=== PATIENT | female | born 1945 | race African-American/Black ===

== ENCOUNTER 2017-02-27 16:43 | Emergency (ER) | payer OTHER, MEDICARE ==
[~2017-02-27] VITALS: Ht 172.7 cm; Wt 78.0 kg
[~2017-02-27 16:43] MED LIST: AMLO-268 PO; ASPI-482 PO; LEVO112T4 PO; MECL12.52 PO
[2017-02-27 17:20] VITALS: BP 166/86
[2017-02-27] MEDS ORDERED: IBUP-1007 PO (17:31)
[2017-02-27] MEDS ORDERED: CYCL10TA2 PO (17:31)
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
== END 2017-02-27 17:46 | disposition home or self-care (01) ==
LOC: ER 16:43
DX: S70.12XA Contusion of left thigh, initial encounter (principal); S50.12XA Contusion of left forearm, initial encounter; I10 Essential (primary) hypertension; Z98.49 Cataract extraction status, unspecified eye; V43.52XA Car driver injured in collision with other type car in traffic accident, initial encounter; Y93.I9 Activity, other involving external motion; Y92.410 Unspecified street and highway as the place of occurrence of the external cause; Y99.8 Other external cause status
CPT/HCPCS: 99283

== ENCOUNTER 2019-02-27 18:11 | Emergency (ER) | payer MEDICARE ==
[~2019-02-27] VITALS: Ht 172.7 cm; Wt 77.1 kg
[~2019-02-27 18:11] MED LIST changes: +CYCL10TA2 PO; +IBUP-1007 PO
[2019-02-27 19:24] VITALS: BP 180/68
[2019-02-27] MEDS ORDERED: LIDOCAINE 2% VISCOUS 15 ML SOLUTION. SWSW STA (19:41)
--- NOTE | 2019-02-27 19:46 | PHYS DOC ---
Past Medical History Past Medical History: Hypertension, Hypothyroid (HERNANDEZ MONTES DE OCA APRN) Past Surgical History: Other Additional Past Surgical Histo: CATARACT, HERNIA (HERNANDEZ MONTES DE OCA APRN) Alcohol Use: None Drug Use: None (HERNANDEZ MONTES DE OCA APRN) Attending Signature I have participated in the care of this patient and I have reviewed and agree with all pertinent clinical information above including history, exam, and recommendations. (REBECCA AGUSTIN MD) Adult General Chief Complaint Chief Complaint: MECHANICAL FALL HPI HPI Patient is a 73 year old female who presents with a fall that happened around 6:15 this evening. The patient fell as she was walking up the front steps her house she tripped over a step fell face forward and hit her mouth against a step. Rates her pain as 5 out of 10 in severity. She states that she doesn't really hurting where she is is worried about lip laceration. (HERNANDEZ MONTES DE OCA APRN) Review of Systems Review of Systems Constitutional: Denies fever or chills [] Eyes: Denies change in visual acuity, redness, or eye pain [] HENT: Denies nasal congestion or sore throat [] Respiratory: Denies cough or shortness of breath [] Cardiovascular: No additional information not addressed in HPI [] GI: Denies abdominal pain, nausea, vomiting, bloody stools or diarrhea [] : Denies dysuria or hematuria [] Musculoskeletal: Denies back pain or joint pain [] Integument: Reports laceration inside mouth. Neurologic: Denies headache, focal weakness or sensory changes [] Endocrine: Denies polyuria or polydipsia [] Complete systems were reviewed and found to be within normal limits, except as documented in this note. (HERNANDEZ MONTES DE OCA APRN) Current Medications Current Medications Current Medications Medications (Trade) Dose Ordered Sig/Jennifer Start Time Stop Time Status Last Admin Dose Admin Diphtheria/ Tetanus/Acell Pertussis (Boostrix) 0.5 ml ONCE ONCE 02/27/19 21:15 02/27/19 21:16 DC 02/27/19 21:14 0.5 ML Lidocaine HCl (Viscous Lidocaine) 15 ml 1X STAT 02/27/19 19:41 02/27/19 19:46 DC 02/27/19 19:49 15 ML (REBECCA AGUSTIN MD) Allergies Allergies Allergies Coded Allergies Type Severity Reaction Last Updated Verified No Known Drug Allergies 12/05/14 No (REBECCA AGUSTIN MD) Physical Exam Physical Exam Constitutional: Well developed, well nourished, no acute distress, non-toxic appearance. [] HENT: Normocephalic, atraumatic, bilateral external ears normal, oropharynx moist, has 2 cm laceration inside mouth, no oral exudates, nose normal. [] Eyes: PERRLA, EOMI, conjunctiva normal, no discharge. [] Abdomen: Bowel sounds normal, soft, no tenderness, no masses, no pulsatile masses. [] Skin: Warm, dry, no erythema, no rash. [] Back: No tenderness, no CVA tenderness. [] Extremities: No tenderness, no cyanosis, no clubbing, ROM intact, no edema. [] Neurologic: Alert and oriented X 3, normal motor function, normal sensory function, no focal deficits noted. [] Psychologic: Affect normal, judgement normal, mood normal. [] (HERNANDEZ MONTES DE OCA APRN) Current Patient Data Vital Signs Vital Signs Date Time Temp Pulse Resp B/P (MAP) Pulse Ox O2 Delivery O2 Flow Rate FiO2 02/27/19 19:24 69 97 02/27/19 19:14 98.8 18 208/91 (130) Room Air 98.8 (REBECCA AGUSTIN MD) EKG EKG [] (HERNANDEZ MONTES DE OCA APRN) Radiology/Procedures Radiology/Procedures Indication: Mouth Laceration Procedure: The patient was placed in the appropriate position and anesthesia around the viscious lidocaine. The laceration was closed with chromic gut sutures (4). Total repaired wound length: 3 cm. Other Items: [OTHER ITEMS] The patient tolerated the procedure well. (HERNANDEZ MONTES DE OCA APRN) Course & Med Decision Making Course & Med Decision Making Pertinent Labs and Imaging studies reviewed. (See chart for details) Will order viscous lidocaine and then will suture laceration. Laceration was sutured. (HERNANDEZ MONTES DE OCA APRN) Dragon Disclaimer Dragon Disclaimer This electronic medical record was generated, in whole or in part, using a voice recognition dictation system. (HERNANDEZ MONTES DE OCA APRN) Departure Departure Impression: Primary Impression: Laceration of mouth, internal Disposition: 01 HOME, SELF-CARE Condition: STABLE Referrals: HERNANDEZ DOAN MD (PCP) Patient Instructions: Absorbable Suture Repair-Brief, Mouth Laceration Additional Instructions: Thank you for visiting [facility]. We appreciate you trusting us with your care. If any additional problems come up don't hesitate to return to visit us. Please follow up with your primary care provider so they can plan additional care if needed and know about the problem that you had. If symptoms worsen come back to the Emergency Department. Any concerning symptoms that start such as chest pain, shortness of air, weakness or numbness on one side of the body, running high fevers or any other concerning symptoms return to the ER. If you have any issues please return to ER. Problem Qualifiers Primary Impression: Laceration of mouth, internal Encounter type: initial encounter Qualified Codes: S01.512A - Laceration without foreign body of oral cavity, initial encounter HERNANDEZ MONTES DE OCA APRN Feb 27, 2019 19:46 REBECCA AGUSTIN MD Mar 09, 2019 18:17
[2019-02-27] MEDS ORDERED: DIPHTH,PERTUSS(ACELL),TET TOX 0.5 ML DISP.SYRIN. VAX IM ONE (21:15)
== END 2019-02-27 21:05 | disposition home or self-care (01) ==
LOC: ER 18:11
DX: S01.512A Laceration without foreign body of oral cavity, initial encounter (principal); I10 Essential (primary) hypertension; E03.9 Hypothyroidism, unspecified; W18.09XA Striking against other object with subsequent fall, initial encounter; Y93.01 Activity, walking, marching and hiking; Y92.89 Other specified places as the place of occurrence of the external cause; Y99.8 Other external cause status
CPT/HCPCS: 12011; 12013; 90471; 90715; 99283

== ENCOUNTER → 2021-04-26 | Outpatient (CLI) | payer MEDICARE ==
[~2021-04-26] MED LIST changes: +CYCL10TA19 PO; -CYCL10TA2 PO; -LEVO112T4 PO; +LEVO112T49 PO; -MECL12.52 PO; +MECL12.582 PO
--- NOTE | 2021-04-26 10:34 | RAD ---
PQRS Compliance Statement: One or more of the following individualized dose reduction techniques were utilized for this examinat ion: 1. Automated exposure control 2. Adjustment of the mA and/or kV according to patient size 3. Use of iterative reconstruction technique Exam performed: CT scan of the abdomen and pelvis without contrast. Clinical Indication: Reason: LLQ PAIN X 2 MONTHS- / Spl. Instructions: / History: Date of Service: 04/26/2021 9:18 AM. Comparison: None available Technique: Contiguous helical acquisitions are obtained through the abdomen and pelvis without IV con trast. Sagittal and coronal reformatted images are obtained and reviewed. CT abdomen and pelvis findings: The lung bases are essentially clear. Visualized heart is normal. Lack of IV contrast limits evaluation of abdominal viscera, however the liver, spleen and pancreas ar e normal. Gallbladder is distended. Both adrenal glands and bilateral kidneys are normal in size with out hydronephrosis or nephrolithiasis. 4 mm left inferior renal pole calculus. Aorta is normal in yi iber without aneurysm. Small and large bowel loops are normal. The visualized portion of the appendix is unremarkable. Distal ureters are nondilated. Urinary bladder is decompressed and thick walled. . [Uterus is anteve rted containing multiple calcified fibroids.] No free or focal fluid collections are identified.Spond ylotic changes and degenerative disc disease noted.. Impression: Nonobstructing 4 mm left inferior renal pole calculus. Multiple calcified fibroids. No acute intra-abdominal or pelvic process detected. Electronically signed by: Kayla Farr MD (04/26/2021 10:32 AM) [facility]
== END ==
LOC: CT 08:51
PROVIDERS: ATTEND Internal Medicine
DX: N20.0 Calculus of kidney (principal); K82.8 Other specified diseases of gallbladder; D25.9 Leiomyoma of uterus, unspecified; N85.4 Malposition of uterus; M47.819 Spondylosis without myelopathy or radiculopathy, site unspecified
CPT/HCPCS: 74176